=== PATIENT | female | born 1985 | race Caucasian/White ===

== ENCOUNTER → 2016-12-12 | Outpatient (CLI) | payer BC ==
[~2016-12-12] MED LIST: NORCO 325 MG-51 TAB PO
[2016-12-12 13:11] LABS: HEMOGLOBIN 13.3 g/dL (12.2-16.2); LYMPH # 1.7 K/mm3 (0.7-4.5); LYMPH % 20.1 % (10-50.0)
[2016-12-12 13:25] LABS: BUN 8 mg/dL (7-18); GFR (ESTIMATED) 118 ML/MIN (59-)
--- NOTE | 2016-12-12 15:33 | RADIOLOGY REPORT PS360 ---
CT ABD PELVIS W/WO CONTRAST INDICATION: EPIGASTRIC PAIN,N/V, WGT LOSS ORDERING PHYSICIAN: GLORIA WARE APRN PATIENT AGE: 30 years COMPARISON: 06/18/2014 TECHNIQUE: Axial images are obtained without a with IV and oral contrast. Sagittal and coronal reformatted images are reviewed as well. FINDINGS: The lung bases are clear. There has been a prior cholecystectomy. No significant biliary dilatation. No focal liver lesion. The spleen, adrenal glands, pancreas are unremarkable. No obstructing renal or ureteral calculi. No renal mass or perinephric fluid collection. The ureters and urinary bladder is unremarkable. No intestinal obstruction or free air. The appendix has an unremarkable appearance as does the terminal ileum. No evidence of diverticulitis. There is a 2.2 cm right ovarian cyst. There is minimal amount fluid in the cul-de-sac nonspecific. No pelvic mass or abnormal fluid collection. No evidence of abdominal wall hernia. No aneurysm or adenopathy IMPRESSION: 1. 2.2 cm right ovarian cyst with minimal amount fluid in the cul-de-sac. 2. Otherwise negative CT abdomen and pelvis
== END ==
LOC: RAD 12:36
PROVIDERS: Nurse Practitioner Family
DX: R10.13 Epigastric pain (principal); R11.2 Nausea with vomiting, unspecified; R63.4 Abnormal weight loss
CPT/HCPCS: Q9967

== ENCOUNTER → 2017-01-05 | Outpatient (CLI) | payer BC ==
[2017-01-05 15:18] LABS: AEROMONAS NOT DETECTED (NOT DETECTE); ASTROVIRUS NOT DETECTED (NOT DETECTE); CYCLOSPORA CAYETANENSIS NOT DETECTED (NOT DETECTE); E COLI O157 NOT DETECTED (NOT DETECTE); ENTEROAGGREGATIVE E COLI NOT DETECTED (NOT DETECTE); ENTEROPATHOGENIC E COLI NOT DETECTED (NOT DETECTE); ENTEROTOXIGENIC E COLI NOT DETECTED (NOT DETECTE); NOROVIRUS NOT DETECTED (NOT DETECTE); SAPOVIRUS NOT DETECTED (NOT DETECTE); SHIGA-LIKE TOXIN PROD. E COLI NOT DETECTED (NOT DETECTE); SHIGELLA/ENTEROINVASIVE E COLI NOT DETECTED (NOT DETECTE); VIBRIO CHOLERAE NOT DETECTED (NOT DETECTE)
== END ==
LOC: LAB 15:16
PROVIDERS: Nurse Practitioner Family
DX: K52.9 Noninfective gastroenteritis and colitis, unspecified (principal)

== ENCOUNTER 2017-01-26 09:20 | Day surgery (SDC) | payer BC ==
--- NOTE | 2017-01-26 11:10 | Operative Note ---
Upper GI Endoscopy Procedure date: 01/26/17 Date of : 87 Procedure:Upper GI Endoscopy Esophagogastroduodenoscopy with cold biopsies Indications: Mrs. Hollins is a 31-year-old female with worsening dyspepsia since August 2016. This did improve some in October but has gradually worsened. She reports epigastric abdominal burning discomfort, nausea, early satiety and postprandial bloating. She has had some RIGHT upper quadrant pain. She had a cholecystectomy in 2007. The pain sometimes will radiate into her back. She has occasional heartburn but this is mostly controlled with Protonix. She does feel as if stress plays some role. The patient does have IBS with diarrhea predominance but does alternate with constipation. This is her first upper endoscopy. She reports no melena or weight loss. Performing Provider: Carmen Pimentel MD Referring Provider: Kade Malin M.D. Sedation: Fentanyl 200 mg IV/Versed 10 mg IV Procedure: Prior to the procedure, a history and physical exam was performed, and patients medications and allergies were reviewed. The risks and benefits of the procedure and the sedation options and risks were discussed with the patient. All questions were answered and informed consent was obtained. The patient was brought to the procedure room. Patient identification and proposed procedure were verified by the physician and the nurse. The patient was placed in a left lateral decubitus position and the scope was passed under direct vision. Throughout the procedure, the patient's blood pressure, pulse, and oxygen saturations were monitored continuously. The endoscope was introduced through the mouth, and advanced to the second part of duodenum. The upper GI endoscopy was accomplished without difficulty. The patient tolerated the procedure well. Findings: The scope was passed directly into the upper esophagus and advanced to the third portion of the duodenum. The post bulbar duodenum and duodenal bulb were normal with normal mucosa and conniventes. The ampulla was identified and was normal but there was minimal bile identified. Cold biopsies were taken from the post bulbar duodenum to rule out celiac disease. The scope was withdrawn through a normal duodenal bulb and pylorus into the stomach. There was some mild linear erythema of the antrum was some mild pylorospasm. The remainder of the antrum, body and fundus of the stomach were grossly normal. Upon retroflexion there was no hiatal hernia. 2 biopsies were taken in the antrum and along the lesser curvature for histology. The scope was then withdrawn into the esophagus. There was no evidence of reflux esophagitis or Last's. There was mild tertiary contractions and mild esophageal dysmotility. The remainder of the esophageal mucosa was normal. Immediate complications: None EBL (ml): 0 Impression: 1. Nonerosive gastroesophageal reflux disease with mild esophageal dysmotility 2. Mild linear reactive antritis/gastritis with pylorospasm Recommendations: I do feel that the patient has functional dyspepsia and functional bowel disease. We will discuss additional dietary measures and treatment options. Given the fact that she does have some RIGHT upper quadrant pain, she also may have some sphincter of Oddi dysfunction. If she fails to improve, I would consider checking liver and pancreatic chemistries. If these are indeed elevated , we may consider ERCP. at 1110
[2017-01-26 15:52] VITALS: BP 139/90
== END 2017-01-26 12:10 | disposition home or self-care (01) ==
LOC: SDC 09:20
PROVIDERS: Internal Medicine Gastroenterology
PROC: 0DB68ZX Excision of Stomach, Via Natural or Artificial Opening Endoscopic, Diagnostic (ICD-10-PCS; 2017-01-26)
PROC: 0DB98ZX Excision of Duodenum, Via Natural or Artificial Opening Endoscopic, Diagnostic (ICD-10-PCS; principal; 2017-01-26 10:30)
DX: K21.9 Gastro-esophageal reflux disease without esophagitis (principal); K22.4 Dyskinesia of esophagus; K29.60 Other gastritis without bleeding; K31.3 Pylorospasm, not elsewhere classified